=== PATIENT | female | born 1940 | race Two or more races ===

== ENCOUNTER 2025-01-23 11:02 | Emergency (ER) | payer OTHER ==
[~2025-01-23] VITALS: Ht 167.6 cm; Wt 54.4 kg
[2025-01-23] MEDS ORDERED: PROPRANOLOL HCL20 MG PO (11:31)
[2025-01-23] MEDS ORDERED: COZAAR100 MG PO (11:31)
== END 2025-01-23 16:25 | disposition home or self-care (01) ==
LOC: ER 11:22
DX: M16.12 Unilateral primary osteoarthritis, left hip (principal); M77.32 Calcaneal spur, left foot; M51.369 Other intervertebral disc degeneration, lumbar region without mention of lumbar back pain or lower extremity pain; M85.88 Other specified disorders of bone density and structure, other site; I10 Essential (primary) hypertension